=== PATIENT | male | born 1940 | race Caucasian/White ===

== ENCOUNTER 2020-08-19 20:46 | Inpatient (IN) | payer OTHER, MEDICARE ==
[2020-08-19 21:11] VITALS: BMI 34.8
[2020-08-19 22:55] LABS: BASO % 0.5 % (0-2.0); EOS % 0.1 % (0-4.5); HEMATOCRIT 45.8 % (35.4-49); HEMOGLOBIN 15.1 GM/dL (11.7-16.9); LYMPH % 7.1 % (8-40); MEAN CELL VOLUME 90.8 fl (80-96); MEAN PLT VOLUME 8.7 fl (7.5-11.1); MONO % 7.5 % (3.8-10.2); NEUT % 84.8 % (42.8-82.8); PLATELET COUNT 173 K/MM3 (134-434); RBC 5.05 M/mm3 (4.00-5.60); WHITE BLOOD COUNT 15.2 K/mm3 (4.0-10.0)
[2020-08-19 23:04] LABS: INR 1.13 (0.83-1.09); PROTHROMBIN TIME (PATIENT) 13.8 SEC (9.7-13.0)
[2020-08-19 23:07] LABS: ACTIVATED PTT 20.5 SECONDS (25.2-36.5)
[2020-08-19 23:26] LABS: POTASSIUM 3.6 mmol/L (3.5-5.1)
[2020-08-19 23:28] LABS: ALBUMIN 3.8 g/dl (3.4-5.0); BLOOD UREA NITROGEN 21.2 mg/dL (7-18); CALCIUM 9.4 mg/dL (8.5-10.1)
[2020-08-19 23:32] LABS: CREATININE 1.4 mg/dL (0.55-1.3)
[2020-08-19 23:33] LABS: BILIRUBIN,TOTAL 0.5 mg/dL (0.2-1); TOT PROT 7.2 g/dl (6.4-8.2)
[2020-08-20] MEDS ORDERED: amLODIPine BESYLATE 5 MG TABLET (FP) PO ONE ×2 (01:27→12:15)
[2020-08-20] MEDS ORDERED: ACETAMINOPHEN 325 MG TABLET (FP) PO ONE (01:27)
[2020-08-20] MEDS ORDERED: ACETAMINOPHEN 325 MG TABLET (FP) ONE (01:46)
[2020-08-20] MEDS ORDERED: amLODIPine BESYLATE 5 MG TABLET (FP) ONE ×2 (01:47→13:31)
[2020-08-20] MEDS ORDERED: METOPROLOL TARTRATE 5 MG/5 ML VIAL IVPUSH ONE (02:46)
[2020-08-20] MEDS ORDERED: SODIUM CHLORIDE 1,000 ML IV SCH ×6 (04:15→19:37)
[2020-08-20] MEDS ORDERED: HEPARIN NA (PORCINE) 5,000 UNITS/ML 1ML VIAL ONE ×2 (06:44→10:13)
[2020-08-20] MEDS: INSULIN SLIDING SCALE (NOVOLOG) 1 VIAL SQ SCH ×3 (07:20→18:00)
[2020-08-20 07:31] LABS: BASO % 0.5 % (0-2.0); EOS % 0.3 % (0-4.5); HEMATOCRIT 43.7 % (35.4-49); HEMOGLOBIN 14.5 GM/dL (11.7-16.9); LYMPH % 21.4 % (8-40); MCH 30.1 pg (25.7-33.7); MCHC 33.3 g/dl (32.0-35.9); MEAN CELL VOLUME 90.5 fl (80-96); MEAN PLT VOLUME 8.7 fl (7.5-11.1); MONO % 10.8 % (3.8-10.2); PLATELET COUNT 172 K/MM3 (134-434); RBC 4.83 M/mm3 (4.00-5.60); RDW 14.1 % (11.9-15.9); WHITE BLOOD COUNT 9.5 K/mm3 (4.0-10.0)
[2020-08-20 07:40] LABS: CHLORIDE 110 mmol/L (98-107); POTASSIUM 3.6 mmol/L (3.5-5.1); SODIUM 141 mmol/L (136-145)
[2020-08-20 07:42] LABS: ALBUMIN 3.5 g/dl (3.4-5.0); ANION GAP 9 MMOL/L (8-16); BLOOD UREA NITROGEN 20.3 mg/dL (7-18); CALCIUM 9.3 mg/dL (8.5-10.1); CO2 22 mmol/L (21-32); GLUCOSE,RANDOM 113 mg/dL (74-106); MAGNESIUM 2.3 mg/dL (1.8-2.4)
[2020-08-20 07:45] LABS: CREATININE 1.2 mg/dL (0.55-1.3); PHOSPHOROUS 3.1 mg/dL (2.5-4.9); SGOT/AST 478 U/L (15-37); SGPT/ALT 72 U/L (13-61)
[2020-08-20 07:46] LABS: TOT PROT 6.7 g/dl (6.4-8.2)
[2020-08-20 07:48] LABS: ALK PHOS 87 U/L (45-117)
[2020-08-20 07:52] LABS: BILIRUBIN,TOTAL 0.7 mg/dL (0.2-1)
[2020-08-20] MEDS: HEPARIN NA (PORCINE) 5,000 UNITS/ML 1ML VIAL SQ SCH ×3 (09:00→23:00)
[2020-08-20] MEDS ORDERED: amLODIPine BESYLATE 5 MG TABLET (FP) PO SCH (10:00)
[2020-08-20] MEDS ORDERED: amLODIPine BESYLATE 2.5 MG TABLET (FP) ONE (10:12)
[2020-08-20 11:29] LABS: TRIGLYCERIDES 530 mg/dL (0-150)
[2020-08-20 11:30] LABS: CHOLESTEROL 196 mg/dL (50-200)
[2020-08-20 11:31] LABS: LDL CHOLESTEROL (ONLY SJRH) 86 mg/dL (5-100)
[2020-08-20 11:32] LABS: HDL CHOLESTEROL 32 mg/dL (40-60)
[2020-08-20] MEDS: LABETALOL HCL 200 MG TABLET (FP) PO PRN (13:00)
[2020-08-20] MEDS: ASPIRIN 81 MG CHEWABLE TABLETS PO SCH (13:00)
[2020-08-20] MEDS ORDERED: ASPIRIN 81 MG CHEWABLE TABLETS ONE (13:31)
[2020-08-20] MEDS ORDERED: LABETALOL HCL 100 MG TABLET (FP) ONE (13:31)
[2020-08-20] MEDS ORDERED: niCARdipine HCL 25 MG/10 ML AMPUL IVPB ONE (14:58)
[2020-08-20] MEDS ORDERED: NICARDIPINE 25 MG in DEXTROSE 5%-WATER - 240 ML IVPB SCH (15:15)
[2020-08-20 17:46] LABS: EPI CELLS 2 /uL (0-25.1); HYALINE CASTS 1 /uL (0-3.1); PH,URINE 5.5 (5.0-8.0); URINE APPEARANCE CLEAR; URINE BACTERIA 9 /uL (0-1359); URINE BILIRUBIN NEGATIVE (NEGATIVE); URINE COLOR YELLOW; URINE GLUCOSE (UA) NEGATIVE (NEGATIVE); URINE KETONE NEGATIVE (NEGATIVE); URINE LEUK ESTERASE NEGATIVE (NEGATIVE); URINE NITRITE NEGATIVE (NEGATIVE); URINE PROTEIN 3+ (NEGATIVE); URINE RBC 19 /uL (0-23.9); URINE UROBILINOGEN 0.2 mg/dL (0.2-1.0); URINE WBC 5 /uL (0-25.8)
[2020-08-20] MEDS: CHLORHEXIDINE GLUCONATE 4% CLEANSER FOR DECOLONIZATION TP SCH (23:00)
[2020-08-20] MEDS: MUPIROCIN 2% TOPICAL OINTMENT FOR DECOLONIZATION NS SCH (23:00)
[2020-08-21] MEDS: INSULIN SLIDING SCALE (NOVOLOG) 1 VIAL SQ SCH ×5 (01:11→21:44)
[2020-08-21 02:20] LABS: CALCIUM 8.1 mg/dL (8.5-10.1); POTASSIUM 3.4 mmol/L (3.5-5.1)
[2020-08-21 02:22] LABS: BLOOD UREA NITROGEN 23.5 mg/dL (7-18)
[2020-08-21 02:25] LABS: CREATININE 1.2 mg/dL (0.55-1.3)
[2020-08-21] MEDS: HEPARIN NA (PORCINE) 5,000 UNITS/ML 1ML VIAL SQ SCH ×3 (06:39→21:44)
[2020-08-21] MEDS: LABETALOL HCL 200 MG TABLET (FP) PO PRN (06:49)
[2020-08-21 07:26] LABS: BASO % 0.4 % (0-2.0); EOS % 1.7 % (0-4.5); HEMATOCRIT 38.7 % (35.4-49); HEMOGLOBIN 13.1 GM/dL (11.7-16.9); LYMPH % 24.4 % (8-40); MCH 31.1 pg (25.7-33.7); MCHC 33.9 g/dl (32.0-35.9); MEAN PLT VOLUME 8.7 fl (7.5-11.1); MONO % 10.1 % (3.8-10.2); NEUT % 63.4 % (42.8-82.8); PLATELET COUNT 150 K/MM3 (134-434); RBC 4.21 M/mm3 (4.00-5.60); RDW 14.5 % (11.9-15.9); WHITE BLOOD COUNT 9.4 K/mm3 (4.0-10.0)
[2020-08-21 07:53] LABS: POTASSIUM 3.9 mmol/L (3.5-5.1)
[2020-08-21 08:11] LABS: ALBUMIN 2.9 g/dl (3.4-5.0); CALCIUM 8.5 mg/dL (8.5-10.1)
[2020-08-21 08:14] LABS: BLOOD UREA NITROGEN 20.4 mg/dL (7-18); PHOSPHOROUS 3.1 mg/dL (2.5-4.9)
[2020-08-21 08:16] LABS: BILIRUBIN,TOTAL 0.7 mg/dL (0.2-1); CREATININE 1.2 mg/dL (0.55-1.3); TOT PROT 5.8 g/dl (6.4-8.2)
[2020-08-21] MEDS: LABETALOL HCL 200 MG TABLET (FP) PO SCH ×2 (09:49→21:44)
[2020-08-21] MEDS: MUPIROCIN 2% TOPICAL OINTMENT FOR DECOLONIZATION NS SCH ×2 (09:49→21:44)
[2020-08-21] MEDS: ASPIRIN 81 MG CHEWABLE TABLETS PO SCH (09:49)
[2020-08-21] MEDS: amLODIPine BESYLATE 10 MG TABLET (FP) PO SCH (09:49)
[2020-08-21] MEDS ORDERED: SODIUM CHLORIDE 1,000 ML IV SCH (13:11)
[2020-08-21 14:07] LABS: EPI CELLS 2 /uL (0-25.1); HYALINE CASTS 1 /uL (0-3.1); PH,URINE 5.5 (5.0-8.0); URINE APPEARANCE CLEAR; URINE BACTERIA 6 /uL (0-1359); URINE BILIRUBIN NEGATIVE (NEGATIVE); URINE COLOR YELLOW; URINE GLUCOSE (UA) NEGATIVE (NEGATIVE); URINE KETONE NEGATIVE (NEGATIVE); URINE LEUK ESTERASE NEGATIVE (NEGATIVE); URINE NITRITE NEGATIVE (NEGATIVE); URINE PROTEIN 1+ (NEGATIVE); URINE RBC 2 /uL (0-23.9); URINE UROBILINOGEN 0.2 mg/dL (0.2-1.0); URINE WBC 7 /uL (0-25.8)
[2020-08-21] MEDS: CHLORHEXIDINE GLUCONATE 4% CLEANSER FOR DECOLONIZATION TP SCH (21:44)
[2020-08-22 06:46] LABS: HEMATOCRIT 38.7 % (35.4-49); MCH 30.8 pg (25.7-33.7); MCHC 33.6 g/dl (32.0-35.9); MEAN CELL VOLUME 91.8 fl (80-96); MEAN PLT VOLUME 8.6 fl (7.5-11.1); PLATELET COUNT 149 K/MM3 (134-434); RBC 4.22 M/mm3 (4.00-5.60); RDW 14.4 % (11.9-15.9); WHITE BLOOD COUNT 8.2 K/mm3 (4.0-10.0)
[2020-08-22] MEDS: INSULIN SLIDING SCALE (NOVOLOG) 1 VIAL SQ SCH ×4 (06:51→21:36)
[2020-08-22] MEDS: HEPARIN NA (PORCINE) 5,000 UNITS/ML 1ML VIAL SQ SCH ×3 (06:51→21:32)
[2020-08-22 07:10] LABS: POTASSIUM 3.8 mmol/L (3.5-5.1)
[2020-08-22 07:12] LABS: CALCIUM 8.3 mg/dL (8.5-10.1)
[2020-08-22 07:13] LABS: ALBUMIN 2.9 g/dl (3.4-5.0); BLOOD UREA NITROGEN 17.7 mg/dL (7-18)
[2020-08-22 07:16] LABS: CREATININE 1.1 mg/dL (0.55-1.3)
[2020-08-22 07:18] LABS: BILIRUBIN,TOTAL 0.6 mg/dL (0.2-1); TOT PROT 5.7 g/dl (6.4-8.2)
[2020-08-22] MEDS: LABETALOL HCL 200 MG TABLET (FP) PO SCH ×2 (09:33→21:37)
[2020-08-22] MEDS: ASPIRIN 81 MG CHEWABLE TABLETS PO SCH (09:33)
[2020-08-22] MEDS: amLODIPine BESYLATE 10 MG TABLET (FP) PO SCH (09:33)
[2020-08-22] MEDS: MUPIROCIN 2% TOPICAL OINTMENT FOR DECOLONIZATION NS SCH ×2 (09:33→22:55)
[2020-08-22] MEDS: SODIUM CHLORIDE 1,000 ML IV SCH (12:19)
[2020-08-22] MEDS: CHLORHEXIDINE GLUCONATE 4% CLEANSER FOR DECOLONIZATION TP SCH (21:36)
[2020-08-23] MEDS: HEPARIN NA (PORCINE) 5,000 UNITS/ML 1ML VIAL SQ SCH ×3 (06:16→21:54)
[2020-08-23] MEDS: INSULIN SLIDING SCALE (NOVOLOG) 1 VIAL SQ SCH ×4 (06:17→21:57)
[2020-08-23 07:11] LABS: POTASSIUM 3.8 mmol/L (3.5-5.1)
[2020-08-23 07:13] LABS: CALCIUM 8.5 mg/dL (8.5-10.1)
[2020-08-23 07:15] LABS: BLOOD UREA NITROGEN 17.9 mg/dL (7-18)
[2020-08-23 07:18] LABS: CREATININE 1.1 mg/dL (0.55-1.3)
[2020-08-23] MEDS: amLODIPine BESYLATE 10 MG TABLET (FP) PO SCH (09:29)
[2020-08-23] MEDS: ASPIRIN 81 MG CHEWABLE TABLETS PO SCH (09:29)
[2020-08-23] MEDS: LABETALOL HCL 200 MG TABLET (FP) PO SCH ×3 (09:30→22:01)
[2020-08-23] MEDS: MUPIROCIN 2% TOPICAL OINTMENT FOR DECOLONIZATION NS SCH ×2 (09:30→21:56)
[2020-08-23] MEDS ORDERED: DOCUSATE SODIUM 100 MG CAPSULE (FP) PO PRN (09:52)
[2020-08-23] MEDS ORDERED: FLU VACCINE (FLULAVAL) PF 60 MCG/0.5 ML SYRINGE 2020-2021 IM ONE (09:57)
[2020-08-23] MEDS: SODIUM CHLORIDE 1,000 ML IV SCH (10:00)
[2020-08-23] MEDS: FAMOTIDINE 10 MG TABLET PO SCH (11:11)
[2020-08-23] MEDS: CHLORHEXIDINE GLUCONATE 4% CLEANSER FOR DECOLONIZATION TP SCH (21:56)
[2020-08-24] MEDS: HEPARIN NA (PORCINE) 5,000 UNITS/ML 1ML VIAL SQ SCH ×3 (06:13→21:57)
[2020-08-24] MEDS: INSULIN SLIDING SCALE (NOVOLOG) 1 VIAL SQ SCH ×4 (07:07→21:57)
[2020-08-24] MEDS: LABETALOL HCL 200 MG TABLET (FP) PO SCH ×2 (09:32→22:01)
[2020-08-24] MEDS: amLODIPine BESYLATE 10 MG TABLET (FP) PO SCH (09:33)
[2020-08-24] MEDS: ASPIRIN 81 MG CHEWABLE TABLETS PO SCH (09:33)
[2020-08-24] MEDS: MUPIROCIN 2% TOPICAL OINTMENT FOR DECOLONIZATION NS SCH ×2 (09:33→21:58)
[2020-08-24] MEDS: FAMOTIDINE 10 MG TABLET PO SCH (09:33)
[2020-08-24] MEDS: SODIUM CHLORIDE 1,000 ML IV SCH ×2 (12:04→15:30)
[2020-08-24 14:04] LABS: BLOOD UREA NITROGEN 18.9 mg/dL (7-18); CREATININE 1.1 mg/dL (0.55-1.3)
[2020-08-24] MEDS: CHLORHEXIDINE GLUCONATE 4% CLEANSER FOR DECOLONIZATION TP SCH (22:39)
[2020-08-25] MEDS: HEPARIN NA (PORCINE) 5,000 UNITS/ML 1ML VIAL SQ SCH ×3 (06:09→22:17)
[2020-08-25] MEDS: INSULIN SLIDING SCALE (NOVOLOG) 1 VIAL SQ SCH ×4 (06:10→22:17)
[2020-08-25] MEDS: ASPIRIN 81 MG CHEWABLE TABLETS PO SCH (09:29)
[2020-08-25] MEDS: FAMOTIDINE 10 MG TABLET PO SCH (09:29)
[2020-08-25] MEDS: LABETALOL HCL 200 MG TABLET (FP) PO SCH ×2 (09:29→22:17)
[2020-08-25] MEDS: amLODIPine BESYLATE 10 MG TABLET (FP) PO SCH (09:29)
[2020-08-25 10:43] LABS: BASO % 0.4 % (0-2.0); EOS % 3.3 % (0-4.5); HEMATOCRIT 39.6 % (35.4-49); HEMOGLOBIN 13.1 GM/dL (11.7-16.9); LYMPH % 23.3 % (8-40); MEAN CELL VOLUME 90.9 fl (80-96); MEAN PLT VOLUME 8.7 fl (7.5-11.1); MONO % 11.3 % (3.8-10.2); NEUT % 61.7 % (42.8-82.8); PLATELET COUNT 193 K/MM3 (134-434); RBC 4.36 M/mm3 (4.00-5.60); RDW 14.5 % (11.9-15.9); WHITE BLOOD COUNT 7.8 K/mm3 (4.0-10.0)
[2020-08-25 11:00] LABS: CALCIUM 9.3 mg/dL (8.5-10.1)
[2020-08-25 11:01] LABS: BLOOD UREA NITROGEN 18.4 mg/dL (7-18); MAGNESIUM 2.3 mg/dL (1.8-2.4)
[2020-08-25 11:04] LABS: CREATININE 1.1 mg/dL (0.55-1.3)
[2020-08-25 11:05] LABS: BILIRUBIN,TOTAL 0.8 mg/dL (0.2-1); TOT PROT 6.4 g/dl (6.4-8.2)
[2020-08-25] MEDS: TAMSULOSIN HCL 0.4 MG CAP PO SCH (16:12)
[2020-08-26] MEDS: INSULIN SLIDING SCALE (NOVOLOG) 1 VIAL SQ SCH ×4 (06:20→21:30)
[2020-08-26] MEDS: HEPARIN NA (PORCINE) 5,000 UNITS/ML 1ML VIAL SQ SCH ×3 (06:23→21:31)
[2020-08-26 07:37] LABS: BASO % 0.3 % (0-2.0); EOS % 4.2 % (0-4.5); HEMATOCRIT 38.4 % (35.4-49); HEMOGLOBIN 12.8 GM/dL (11.7-16.9); LYMPH % 25.7 % (8-40); MCH 30.6 pg (25.7-33.7); MCHC 33.5 g/dl (32.0-35.9); MEAN CELL VOLUME 91.5 fl (80-96); MEAN PLT VOLUME 8.7 fl (7.5-11.1); NEUT % 59.8 % (42.8-82.8); PLATELET COUNT 195 K/MM3 (134-434); RBC 4.19 M/mm3 (4.00-5.60); RDW 14.4 % (11.9-15.9); WHITE BLOOD COUNT 6.6 K/mm3 (4.0-10.0)
[2020-08-26 08:57] LABS: POTASSIUM 3.9 mmol/L (3.5-5.1)
[2020-08-26 09:00] LABS: CALCIUM 9.3 mg/dL (8.5-10.1)
[2020-08-26 09:01] LABS: ALBUMIN 2.8 g/dl (3.4-5.0); BLOOD UREA NITROGEN 21.7 mg/dL (7-18); MAGNESIUM 2.3 mg/dL (1.8-2.4)
[2020-08-26 09:04] LABS: CREATININE 1.1 mg/dL (0.55-1.3)
[2020-08-26 09:06] LABS: BILIRUBIN,TOTAL 1.5 mg/dL (0.2-1); TOT PROT 6.1 g/dl (6.4-8.2)
[2020-08-26] MEDS: amLODIPine BESYLATE 10 MG TABLET (FP) PO SCH (09:16)
[2020-08-26] MEDS: ASPIRIN 81 MG CHEWABLE TABLETS PO SCH (09:16)
[2020-08-26] MEDS: TAMSULOSIN HCL 0.4 MG CAP PO SCH (09:17)
[2020-08-26] MEDS: FAMOTIDINE 10 MG TABLET PO SCH (09:17)
[2020-08-26] MEDS: LABETALOL HCL 200 MG TABLET (FP) PO SCH ×2 (09:17→21:31)
[2020-08-27] MEDS: HEPARIN NA (PORCINE) 5,000 UNITS/ML 1ML VIAL SQ SCH ×3 (06:48→21:42)
[2020-08-27] MEDS: INSULIN SLIDING SCALE (NOVOLOG) 1 VIAL SQ SCH ×4 (06:48→21:44)
[2020-08-27 06:55] LABS: BASO % 0.5 % (0-2.0); EOS % 4.9 % (0-4.5); HEMATOCRIT 38.3 % (35.4-49); HEMOGLOBIN 12.4 GM/dL (11.7-16.9); LYMPH % 32.9 % (8-40); MCH 29.6 pg (25.7-33.7); MCHC 32.3 g/dl (32.0-35.9); MEAN CELL VOLUME 91.7 fl (80-96); MEAN PLT VOLUME 8.9 fl (7.5-11.1); MONO % 11.6 % (3.8-10.2); NEUT % 50.1 % (42.8-82.8); PLATELET COUNT 210 K/MM3 (134-434); RBC 4.18 M/mm3 (4.00-5.60); RDW 14.2 % (11.9-15.9)
[2020-08-27 07:18] LABS: POTASSIUM 3.8 mmol/L (3.5-5.1)
[2020-08-27 07:47] LABS: CALCIUM 9.1 mg/dL (8.5-10.1)
[2020-08-27 07:48] LABS: ALBUMIN 2.8 g/dl (3.4-5.0); BLOOD UREA NITROGEN 25.7 mg/dL (7-18); MAGNESIUM 2.4 mg/dL (1.8-2.4)
[2020-08-27 07:50] LABS: CREATININE 1.2 mg/dL (0.55-1.3)
[2020-08-27] MEDS ORDERED: POTASSIUM CHLORIDE TABS 20 MEQ TABLET.ER (FP) PO ONE (09:00)
[2020-08-27] MEDS: amLODIPine BESYLATE 10 MG TABLET (FP) PO SCH (09:29)
[2020-08-27] MEDS: ASPIRIN 81 MG CHEWABLE TABLETS PO SCH (09:29)
[2020-08-27] MEDS: LABETALOL HCL 200 MG TABLET (FP) PO SCH ×2 (09:29→21:42)
[2020-08-27] MEDS: TAMSULOSIN HCL 0.4 MG CAP PO SCH (09:29)
[2020-08-27] MEDS: FAMOTIDINE 10 MG TABLET PO SCH (09:29)
[2020-08-27] MEDS ORDERED: INSULIN (NOVOLOG) ASPART 100 UNITS/ML 10ML VIAL ONE ×2 (11:24→20:52)
[2020-08-27] MEDS ORDERED: INSULIN (LEVEMIR) 100 UNITS/ML UNITS SQ ONE (11:25)
[2020-08-27] MEDS ORDERED: PT OWN MED DRAWER 7, Y5N ONE (11:26)
[2020-08-27] MEDS: POLYETHYLENE GLYCOL 3350 119 GM BTL PO SCH ×2 (12:01→21:44)
[2020-08-27] MEDS: DOCUSATE SODIUM 100 MG CAPSULE (FP) PO SCH (21:44)
[2020-08-28] MEDS: HEPARIN NA (PORCINE) 5,000 UNITS/ML 1ML VIAL SQ SCH ×3 (06:29→21:51)
[2020-08-28] MEDS: INSULIN SLIDING SCALE (NOVOLOG) 1 VIAL SQ SCH ×4 (06:29→21:49)
[2020-08-28 06:33] LABS: BASO % 0.6 % (0-2.0); EOS % 4.9 % (0-4.5); HEMATOCRIT 38.1 % (35.4-49); HEMOGLOBIN 12.7 GM/dL (11.7-16.9); LYMPH % 31.2 % (8-40); MCH 30.2 pg (25.7-33.7); MCHC 33.3 g/dl (32.0-35.9); MEAN CELL VOLUME 90.8 fl (80-96); MEAN PLT VOLUME 8.9 fl (7.5-11.1); MONO % 10.6 % (3.8-10.2); NEUT % 52.7 % (42.8-82.8); PLATELET COUNT 213 K/MM3 (134-434); RDW 13.9 % (11.9-15.9); WHITE BLOOD COUNT 6.8 K/mm3 (4.0-10.0)
[2020-08-28 07:05] LABS: POTASSIUM 3.9 mmol/L (3.5-5.1)
[2020-08-28 07:12] LABS: ALBUMIN 3.1 g/dl (3.4-5.0); CALCIUM 9.2 mg/dL (8.5-10.1)
[2020-08-28 07:13] LABS: BLOOD UREA NITROGEN 25.8 mg/dL (7-18); MAGNESIUM 2.2 mg/dL (1.8-2.4)
[2020-08-28 07:15] LABS: CREATININE 1.3 mg/dL (0.55-1.3)
[2020-08-28 07:16] LABS: BILIRUBIN,TOTAL 0.5 mg/dL (0.2-1)
[2020-08-28 07:17] LABS: TOT PROT 6.2 g/dl (6.4-8.2)
[2020-08-28] MEDS: ASPIRIN 81 MG CHEWABLE TABLETS PO SCH (09:26)
[2020-08-28] MEDS: TAMSULOSIN HCL 0.4 MG CAP PO SCH ×2 (09:26→21:51)
[2020-08-28] MEDS: FAMOTIDINE 10 MG TABLET PO SCH (09:26)
[2020-08-28] MEDS: LABETALOL HCL 200 MG TABLET (FP) PO SCH ×3 (09:26→21:51)
[2020-08-28] MEDS: amLODIPine BESYLATE 10 MG TABLET (FP) PO SCH (09:26)
[2020-08-28] MEDS: POLYETHYLENE GLYCOL 3350 119 GM BTL PO SCH ×2 (09:27→21:51)
[2020-08-28] MEDS: DOCUSATE SODIUM 100 MG CAPSULE (FP) PO SCH (21:51)
[2020-08-29] MEDS: HEPARIN NA (PORCINE) 5,000 UNITS/ML 1ML VIAL SQ SCH ×3 (06:13→22:21)
[2020-08-29] MEDS: INSULIN SLIDING SCALE (NOVOLOG) 1 VIAL SQ SCH ×4 (06:16→22:23)
[2020-08-29 06:54] LABS: BASO % 0.6 % (0-2.0); EOS % 5.1 % (0-4.5); HEMATOCRIT 39.7 % (35.4-49); HEMOGLOBIN 13.2 GM/dL (11.7-16.9); LYMPH % 28.8 % (8-40); MCH 30.3 pg (25.7-33.7); MCHC 33.3 g/dl (32.0-35.9); MEAN CELL VOLUME 91.2 fl (80-96); MEAN PLT VOLUME 8.6 fl (7.5-11.1); MONO % 10.1 % (3.8-10.2); NEUT % 55.4 % (42.8-82.8); PLATELET COUNT 220 K/MM3 (134-434); RBC 4.36 M/mm3 (4.00-5.60); WHITE BLOOD COUNT 6.5 K/mm3 (4.0-10.0)
[2020-08-29 07:08] LABS: POTASSIUM 3.9 mmol/L (3.5-5.1)
[2020-08-29 07:10] LABS: ALBUMIN 3.2 g/dl (3.4-5.0); CALCIUM 9.1 mg/dL (8.5-10.1)
[2020-08-29 07:11] LABS: BLOOD UREA NITROGEN 26.1 mg/dL (7-18)
[2020-08-29 07:14] LABS: CREATININE 1.3 mg/dL (0.55-1.3)
[2020-08-29 07:15] LABS: BILIRUBIN,TOTAL 0.5 mg/dL (0.2-1); TOT PROT 6.6 g/dl (6.4-8.2)
[2020-08-29] MEDS: POLYETHYLENE GLYCOL 3350 119 GM BTL PO SCH ×3 (11:05→22:24)
[2020-08-29] MEDS: FAMOTIDINE 10 MG TABLET PO SCH (11:10)
[2020-08-29] MEDS: TAMSULOSIN HCL 0.4 MG CAP PO SCH ×2 (11:10→22:50)
[2020-08-29] MEDS: amLODIPine BESYLATE 10 MG TABLET (FP) PO SCH (11:10)
[2020-08-29] MEDS: ASPIRIN 81 MG CHEWABLE TABLETS PO SCH (11:17)
[2020-08-29] MEDS: LABETALOL HCL 200 MG TABLET (FP) PO SCH ×2 (11:21→22:21)
[2020-08-29] MEDS ORDERED: INSULIN (NOVOLOG) ASPART 100 UNITS/ML 10ML VIAL ONE (21:53)
[2020-08-29] MEDS: DOCUSATE SODIUM 100 MG CAPSULE (FP) PO SCH (22:20)
[2020-08-30] MEDS: HEPARIN NA (PORCINE) 5,000 UNITS/ML 1ML VIAL SQ SCH ×3 (06:23→21:36)
[2020-08-30] MEDS: INSULIN SLIDING SCALE (NOVOLOG) 1 VIAL SQ SCH ×4 (06:25→21:52)
[2020-08-30 08:04] LABS: BASO % 0.5 % (0-2.0); EOS % 3.5 % (0-4.5); HEMATOCRIT 38.9 % (35.4-49); HEMOGLOBIN 13.1 GM/dL (11.7-16.9); MCH 30.6 pg (25.7-33.7); MCHC 33.6 g/dl (32.0-35.9); MEAN CELL VOLUME 91.2 fl (80-96); MEAN PLT VOLUME 8.7 fl (7.5-11.1); MONO % 10.4 % (3.8-10.2); NEUT % 54.6 % (42.8-82.8); PLATELET COUNT 234 K/MM3 (134-434); RBC 4.26 M/mm3 (4.00-5.60); RDW 14.1 % (11.9-15.9); WHITE BLOOD COUNT 7.3 K/mm3 (4.0-10.0)
[2020-08-30 08:25] LABS: POTASSIUM 4.2 mmol/L (3.5-5.1)
[2020-08-30 08:27] LABS: ALBUMIN 3.2 g/dl (3.4-5.0); BLOOD UREA NITROGEN 24.9 mg/dL (7-18); CALCIUM 8.9 mg/dL (8.5-10.1); MAGNESIUM 2.2 mg/dL (1.8-2.4)
[2020-08-30 08:31] LABS: CREATININE 1.4 mg/dL (0.55-1.3)
[2020-08-30 08:32] LABS: TOT PROT 6.4 g/dl (6.4-8.2)
[2020-08-30 08:35] LABS: BILIRUBIN,TOTAL 0.5 mg/dL (0.2-1)
[2020-08-30] MEDS: TAMSULOSIN HCL 0.4 MG CAP PO SCH ×2 (11:09→21:36)
[2020-08-30] MEDS: amLODIPine BESYLATE 10 MG TABLET (FP) PO SCH (11:09)
[2020-08-30] MEDS: LABETALOL HCL 200 MG TABLET (FP) PO SCH ×2 (11:09→21:34)
[2020-08-30] MEDS: POLYETHYLENE GLYCOL 3350 119 GM BTL PO SCH ×2 (11:10→21:45)
[2020-08-30] MEDS: ASPIRIN 81 MG CHEWABLE TABLETS PO SCH (11:10)
[2020-08-30] MEDS: FAMOTIDINE 10 MG TABLET PO SCH (11:10)
[2020-08-30] MEDS ORDERED: DOCUSATE SODIUM 100 MG CAPSULE (FP) PO SCH (22:00)
[2020-08-31] MEDS: HEPARIN NA (PORCINE) 5,000 UNITS/ML 1ML VIAL SQ SCH ×2 (06:08→14:41)
[2020-08-31] MEDS: INSULIN SLIDING SCALE (NOVOLOG) 1 VIAL SQ SCH ×2 (06:09→11:33)
[2020-08-31 06:35] LABS: BASO % 0.4 % (0-2.0); EOS % 3.4 % (0-4.5); HEMATOCRIT 39.1 % (35.4-49); HEMOGLOBIN 13.1 GM/dL (11.7-16.9); LYMPH % 30.8 % (8-40); MCH 30.7 pg (25.7-33.7); MCHC 33.5 g/dl (32.0-35.9); MEAN CELL VOLUME 91.5 fl (80-96); MEAN PLT VOLUME 8.6 fl (7.5-11.1); MONO % 10.8 % (3.8-10.2); NEUT % 54.6 % (42.8-82.8); PLATELET COUNT 239 K/MM3 (134-434); RBC 4.28 M/mm3 (4.00-5.60); RDW 14.2 % (11.9-15.9); WHITE BLOOD COUNT 7.5 K/mm3 (4.0-10.0)
[2020-08-31 07:02] LABS: POTASSIUM 4.2 mmol/L (3.5-5.1)
[2020-08-31 07:05] LABS: ALBUMIN 3.3 g/dl (3.4-5.0); CALCIUM 9.2 mg/dL (8.5-10.1); MAGNESIUM 2.1 mg/dL (1.8-2.4)
[2020-08-31 07:09] LABS: CREATININE 1.4 mg/dL (0.55-1.3)
[2020-08-31 07:10] LABS: BILIRUBIN,TOTAL 0.8 mg/dL (0.2-1); TOT PROT 6.6 g/dl (6.4-8.2)
[2020-08-31] MEDS ORDERED: INSULIN (NOVOLOG) ASPART 100 UNITS/ML 10ML VIAL ONE (08:03)
[2020-08-31] MEDS: ASPIRIN 81 MG CHEWABLE TABLETS PO SCH (09:20)
[2020-08-31] MEDS: TAMSULOSIN HCL 0.4 MG CAP PO SCH (09:21)
[2020-08-31] MEDS: amLODIPine BESYLATE 10 MG TABLET (FP) PO SCH (09:22)
[2020-08-31] MEDS: FAMOTIDINE 10 MG TABLET PO SCH (09:22)
[2020-08-31] MEDS: LABETALOL HCL 200 MG TABLET (FP) PO SCH (09:23)
[2020-08-31] MEDS: POLYETHYLENE GLYCOL 3350 119 GM BTL PO SCH (09:23)
[2020-08-31 14:37] VITALS: BP 140/77; PULSE 90; TEMP 97.6
[2020-08-31] MEDS ORDERED: ATORVASTATIN CA 40 MG TABLET (FP) PO SCH (22:00)
== END 2020-08-31 15:04 | DRG 558 ==
LOC: JER 20:46 → JERBED 08-20 01:34 → JICU 08-20 18:35 → J4W 08-24 20:54 → J7W 08-27 14:22
PROVIDERS: ADMIT Internal Medicine; ATTEND Nurse Practitioner Acute Care
DX: M62.82 Rhabdomyolysis (principal); N17.9 Acute kidney failure, unspecified; I16.1 Hypertensive emergency; I47.1 Supraventricular tachycardia; N13.30 Unspecified hydronephrosis; E11.9 Type 2 diabetes mellitus without complications; D72.829 Elevated white blood cell count, unspecified; E78.5 Hyperlipidemia, unspecified; N20.0 Calculus of kidney; N40.0 Benign prostatic hyperplasia without lower urinary tract symptoms; N28.1 Cyst of kidney, acquired; R33.9 Retention of urine, unspecified; M48.061 Spinal stenosis, lumbar region without neurogenic claudication; R79.89 Other specified abnormal findings of blood chemistry; R94.5 Abnormal results of liver function studies; I25.2 Old myocardial infarction; W18.30XA Fall on same level, unspecified, initial encounter; Y92.89 Other specified places as the place of occurrence of the external cause
CPT/HCPCS: 36415; 70450-TC; 70551-TC; 71046-TC-FY; 72131-TC; 72148-TC; 74176-TC; 76775-TC; 76856-TC; 80048; 80053; 80061; 81003; 82550; 82553; 82607; 82962; 83036; 83721; 83735; 83880; 84100; 84443; 84484; 85025; 85027; 85610; 85651; 85730; 86038; 86140; 86162; 86850; 86900; 86901; 87040; 87086; 93005; 93010; 97116-GP; 97161-GP; 99285-25; C9803; G0008; J1644; Q2036; U0003